=== PATIENT | male | born 1975 | race Two or more races ===

== ENCOUNTER 2018-05-07 09:11 | Outpatient (CLI) | payer OTHER | END 2018-05-07 09:14 | disposition home or self-care (01) | LOC: SONOGRAMA 09:11 | DX: R10.13 Epigastric pain (principal) ==

== ENCOUNTER → 2018-08-27 | Outpatient (CLI) | payer OTHER | END | disposition home or self-care (01) | LOC: NUCLEAR 07:00 | DX: K29.30 Chronic superficial gastritis without bleeding (principal); R10.13 Epigastric pain | CPT/HCPCS: 78227; A9537 ==

== ENCOUNTER 2018-10-02 06:37 | Outpatient (CLI) | payer OTHER | END 2018-10-02 06:45 | disposition home or self-care (01) | LOC: TOM 06:37 | DX: R10.11 Right upper quadrant pain (principal) ==

== ENCOUNTER 2018-10-08 11:12 | Outpatient (CLI) | payer OTHER | END 2018-10-08 11:19 | disposition home or self-care (01) | LOC: RAD 11:12 | DX: K82.8 Other specified diseases of gallbladder (principal); Z01.811 Encounter for preprocedural respiratory examination ==

== ENCOUNTER 2019-05-05 08:43 | Outpatient (CLI) | payer OTHER | END 2019-05-05 13:41 | disposition home or self-care (01) | LOC: SONOGRAMA 08:43 | DX: R10.84 Generalized abdominal pain (principal) ==

== ENCOUNTER 2021-01-18 08:50 | Outpatient (CLI) | payer OTHER | END 2021-01-18 09:12 | disposition home or self-care (01) | LOC: SONOGRAMA 08:50 | PROVIDERS: ATTEND Internal Medicine Gastroenterology | DX: R10.84 Generalized abdominal pain (principal) ==

== ENCOUNTER 2024-08-18 08:35 | Outpatient (CLI) | payer OTHER ==
[~2024-08-18 08:35] MED LIST: JARDIANCE10 MG PO; NAPR500T14 PO
== END 2024-08-18 08:45 | disposition home or self-care (01) ==
LOC: SONOGRAMA 08:35
PROVIDERS: ATTEND General Practice
DX: K76.0 Fatty (change of) liver, not elsewhere classified (principal)

== ENCOUNTER 2024-09-20 08:38 | Emergency (ER) | payer OTHER ==
[~2024-09-20] VITALS: Ht 180.3 cm; Wt 99.8 kg
[2024-09-20] MEDS ORDERED: DIPHENHYDRAMINE HCL 50 MG/ML VIAL 1ML IM ONE (09:45)
[2024-09-20] MEDS ORDERED: DIPHENHYDRAMINE HCL 50 MG/ML VIAL 1ML ONE (09:59)
[2024-09-20] MEDS ORDERED: ZYRTEC10 MG PO (10:05)
== END 2024-09-20 10:08 | disposition home or self-care (01) ==
LOC: ER 08:40
DX: T78.40XA Allergy, unspecified, initial encounter (principal)
CPT/HCPCS: 96372; 99282; J1200